=== PATIENT | female | born 1965 | race Caucasian/White ===

== ENCOUNTER 2023-03-26 07:47 | Day surgery (SDC) | payer MEDICAID, SELFPAY ==
[2023-03-26 08:01] VITALS: BP 121/88; PULSE 78; RESP 16; TEMP 36.4; O2SAT 98
--- NOTE | 2023-03-26 08:35 | W.COLOREPORT ---
Date of service: 03/26/23 Time of Service: 08:35 Colonoscopy Report Procedure Description: PROCEDURES PERFORMED: 1. Colonoscopy PREOPERATIVE DIAGNOSIS: Screening colonoscopy POSTOPERATIVE DIAGNOSIS: Normal terminal ileum, melanosis coli, minimal diverticulosis SURGEON: Karena Chavez MD INDICATION for procedure: The patient is a 57-year-old woman with no symptoms and no increased risk factors due for her for screening. FINDINGS: The terminal ileum was normal. No polyps were found. The mucosa of the colon was pigmented diffusely throughout the entire colon consistent with melanosis coli (considered a benign, non-inflammatory condition). A couple of minimal/mild scattered diverticuli were noted without any diverticulitis. No hemorrhoid disease. SURVEILLANCE interval/FOLLOW-UP: 10 years SPECIMENS: No EBL: Minimal COMPLICATIONS: None QUALITY of prep: Excellent Procedure in detail: The patient gave written consent and was in agreement with the indications, the potential risks as well as the benefits of the procedure. They taken to the endoscopy suite and laid in the left lateral decubitus position. A timeout was performed and anesthesia was administered which was tolerated well. I started the procedure. Digital rectal and visual examination was performed and grossly within normal limits. A well-lubricated flexible colonoscope was then introduced and passed without any notable difficulty all the way to the cecum identified by the ileocecal valve and the appendiceal orifice. The terminal ileum was intubated and looked normal. The scope was then slowly withdrawn with the above-noted findings. The patient tolerated the procedure well and was taken to the PACU in hemodynamically stable condition.
--- NOTE | 2023-03-26 08:36 | W.PM.DSUDISC ---
Date of service: 03/26/23 Time of Service: 09:30 Discharge Plan Disposition Patient Disposition: Home Condition: Good Discharge Details Attending Provider: Arden Chavez Primary Care Provider: Raoul Meadows Home Meds and New Rx's Prescriptions: No Action Saccharomyces boulardii [Daily Probiotic (S. boulardii)] 250 mg capsule 250 mg PO BID multivitamin Tablet 1 tab PO DAILY cholecalciferol (vitamin D3) 125 mcg (5,000 unit) capsule 125 mcg PO DAILY omega-3 fatty acids 500 mg capsule 500 mg PO DAILY black cohosh menopause complex 1 tab PO DIRECTED Discharge Instructions Additional Instructions: FINDINGS: No colon cancer. No polyps. No inflammatory changes. Overall everything looks pretty healthy. Diverticular changes were found. This is extremely common, benign and nothing needs to be done about it. In your particular case it was extremely minimal and only a couple of diverticuli were seen. A condition called melanosis coli was seen. This is considered a benign finding with no significance and is usually secondary to long-term laxative use whether natural or pharmacological. Stand Alone Forms: Colonoscopy Post Instructions Activity:: Activity as Tolerated Diet:: As Tolerated
--- NOTE | 2023-03-26 08:40 | W.ANESPRE ---
General Info Date of Service Date Performed: 03/26/23 Height: 5 ft 4 in Weight: 73.3 kg Body Mass Index (BMI): 27.7 Surgical Procedure: Operation Date: 03/26/23 09:05 Proposed Procedure Side Surgeon p Colonoscopy Arden Chavez MD Actual Procedure Side Surgeon p Colonoscopy Not Applicable Arden Chavez MD Meds Allergies and Home Medications Allergies Allergy/AdvReac Type Severity Reaction Status Date / Time penicillin V AdvReac Mild rash Verified 03/26/23 07:58 Home Medication Medication Instructions Recorded black cohosh menopause complex 1 tab PO DIRECTED 03/10/23 Saccharomyces boulardii 250 mg 250 mg PO BID 03/13/23 capsule (Daily Probiotic (S. boulardii)) cholecalciferol (vitamin D3) 125 125 mcg PO DAILY 03/13/23 mcg (5,000 unit) capsule multivitamin 1 tab PO DAILY 03/13/23 omega-3 fatty acids 500 mg capsule 500 mg PO DAILY 03/13/23 Current Visit Medications: Current Medications Generic Name Dose Route Start Last Admin Trade Name Dolly PRN Reason Stop Dose Admin Ringer's Solution 1,000 mls @ 80 mls/hr 03/26/23 06:00 IV 04/24/23 23:59 INFUSION ABDI IV Miscellaneous Supplies 1 each 03/26/23 06:00 Iv Access IV 04/24/23 23:59 DIRECTED ABDI Sodium Chloride 0 ml 03/26/23 06:00 Normal Saline Flush 10 Ml Syr IV 04/24/23 23:59 PRN PRN Sodium Chloride 0 ml 03/26/23 06:00 Normal Saline 10 Ml Vial IJ 04/24/23 23:59 DIRECTED PRN Sterile Water 0 ml 03/26/23 06:00 Water,Injection,Sterile 10 Ml Vial IJ 04/24/23 23:59 DIRECTED PRN PFSH Medical History Medical History Menopausal syndrome Varicose veins of both lower extremities Sacroiliac joint dysfunction Irregular menstrual bleeding Surgical History Surgical History Hx of tonsillectomy (~2007) Tobacco Smoking/Tobacco Use Status: Never Alcohol Alcohol Intake: current Alcohol intake frequency: a few times a month Substance Use Substance use: Never Substance use type: does not use Vital Signs and Lab Results Vital Signs Most Recent Vital Signs in EMR: Most Recent Vital Signs Temp Pulse Resp BP Pulse Ox 36.4 C L 78 16 121/88 98 03/26/23 08:01 03/26/23 08:01 03/26/23 08:01 03/26/23 08:01 03/26/23 08:01 Lab Results Blood Type / Crossmatch: No Data to Display Complete Blood Count: No Data to Display Complete Metabolic Panel: No Data to Display Liver Function Panel: No Data to Display Coagulation Panel: No Data to Display Cardiac Panel: No Data to Display Arterial Blood Gas: No Data to Display Venous Blood Gas: No Data to Display Pancreas Panel: No Data to Display Thyroid Panel: No Data to Display Infectious Disease: No Data to Display Blood Cultures: No Data to Display Toxicology Panel: No Data to Display Anesthesia Assessment and Plan Anesthesia History Personal History: No History of Anesthesia Complications Family History: No Family History of Anesthesia Complications Exercise Tolerance Exercise Tolerance: Metabolic Equivalents>4 Pertinent Negatives Pertinent Negatives: No Symptoms of GERD Cardiac & Pulmonary Exam Cardiac Exam: Normal S1/S2 Heart Sounds Pulmonary Exam: Clear Bilateral Breath Sounds Implantable Cardiac Device Does patient have a Pacemaker or an ICD?: No Airway Exam Known Difficult Airway: No Mallampati Class: 2 Mouth Opening: Normal (> 3cm) Thyromental Distance: Greater than 3 cm Neck Range of Motion: Full ROM Neck Circumference: Normal Teeth Condition: Normal Dentition ASA Classification ASA Score: ASA 2 Emergency Case?: No NPO Status NPO Status: NPO Clears >2 hours, Solids >8 hours Anesthesia Plan Resuscitation Status: Full Code Anesthesia Technique: General Anesthesia Airway Planned: Natural Airway Monitors Used: Standard Monitors
[2023-03-26 08:43] VITALS: BMI 27.7
[2023-03-26] MEDS: Lactated Ringers 1,000 ML 80 ML IV (08:44)
[2023-03-26 09:19] VITALS: BP 112/79; PULSE 70; RESP 16; TEMP 36.2; O2SAT 95
--- NOTE | 2023-03-26 09:22 | W.ANESPOSTOP ---
Postoperative Evaluation Date, Time and Location Date Performed: 03/26/23 Time Performed: 09:22 Patient Location: Day Surgery Unit Vital Signs Most Recent Imported Vital Signs: Most Recent Vital Signs Temp Pulse Resp BP Pulse Ox 36.2 C L 70 16 112/79 95 03/26/23 09:19 03/26/23 09:19 03/26/23 09:19 03/26/23 09:19 03/26/23 09:19 Pain Score Most Recent Pain Score: Most Recent Pain Score Pain Level 0 03/26/23 09:19 Assessment Mental Status: Awake (Alert & Oriented to Patient Baseline) Airway and Respiratory Function: Patent airway with normal (patient baseline) respiratory exam Cardiovascular Function: Hemodynamically Stable Hydration Status: Adequately Hydrated Nausea & Vomiting: No Nausea or Vomiting Pain: Pt. Denies Any Pain Peripheral Nerve Block: Patient did not receive a nerve block
[2023-03-26 09:58] VITALS: BP 124/79; PULSE 63; RESP 18; TEMP 36.2; O2SAT 98
== END 2023-03-26 10:27 | disposition home or self-care (01) ==
PROVIDERS: PCP Family Medicine; Visit Provider Student in an Organized Health Care Education/Training Program
PROC: 0DJD8ZZ Inspection of Lower Intestinal Tract, Via Natural or Artificial Opening Endoscopic (ICD-10-PCS; CPT 45378; principal; 2023-03-26 09:00)
DX: Z12.11 Encounter for screening for malignant neoplasm of colon (principal); K57.30 Diverticulosis of large intestine without perforation or abscess without bleeding; K63.89 Other specified diseases of intestine
CPT/HCPCS: 45378; 00123; 81025; J2001; J2704

== ENCOUNTER 2024-03-10 03:15 | Outpatient (CLI) | payer MEDICAID, SELFPAY ==
[2024-03-10 08:19] LABS: Abs Immature Grans 0.02 10^3/uL (0.0-0.06); Absolute Eosinophil Count 0.14 10^3/uL (0.0-0.7); Absolute Lymphocyte Count 2.15 10^3/uL (1.2-3.4); Absolute Monocyte Count 0.75 10^3/uL (0.1-0.8); Absolute Neutrophil Count 4.22 10^3/uL (1.2-6.7); Basophils % 1.4 %; Eosinophils % 1.9 %; HCT 43.2 % (36.0-46.0); HGB 14.6 g/dL (11.2-15.7); Immature Grans % 0.3 %; Lymphocytes % 29.1 %; MCH 31.5 pg (27.0-33.0); MCHC 33.8 % (32.0-36.0); MCV 93 fL (80-95); MPV 9.6 fL (8.0-11.0); Monocytes % 10.2 %; Neutrophils % 57.1 %; Platelet Count 248 10^3/uL (130-400); RBC 4.64 10^6/uL (3.93-5.22); RDW 12.6 % (11.7-14.6); RDW-SD 42.9 fL; WBC 7.38 10^3/uL (4.4-10.8)
[2024-03-10 09:03] LABS: ALT 13 U/L (14-59); AST 15 U/L (15-37); Albumin 4.1 g/dL (3.4-5.0); Alkaline Phosphatase 46 U/L (46-116); Anion Gap 6.3 mmol/L (3-11); BUN 15 mg/dL (7-18); Bilirubin, Total 0.74 mg/dL (0.2-1.0); CO2 30.7 mmol/L (21.0-32.0); CREATININE 0.9 mg/dL (0.55-1.02); Calcium 9.4 mg/dL (8.5-10.1); Calculated LDL 152 mg/dL (<100); Chloride 100 mmol/L (98-107); Cholesterol 223 mg/dL (<200); Estimated GFR 75.03 (mL/min/1.73m2); Folate 13.3 ng/mL (8.6-20.0); Glucose 97 mg/dL (74-106); HDL Cholesterol 58 mg/dL (40-60); Sodium 137 mmol/L (136-145); TSH (W/Ref FT4) 5.73 uIU/mL (0.36-3.74); Triglyceride 65 mg/dL (<150); Vitamin B12 621 pg/mL (193-986)
[2024-03-10 09:23] LABS: FREE T4 0.76 ng/dL (0.76-1.46); Lipase 33 U/L (<78)
== END 2024-03-10 03:16 | disposition home or self-care (01) ==
LOC: LBO 03:15
PROVIDERS: PCP Nurse Practitioner Adult Health; Referring Provider Nurse Practitioner Adult Health; Visit Provider Nurse Practitioner Adult Health
DX: R63.5 Abnormal weight gain (principal); R53.83 Other fatigue
CPT/HCPCS: 36415; 80053; 80061; 83690; 82607; 82746; 84439; 84443; 85025